=== PATIENT | female | born 1965 | race Hispanic/Latino ===

== ENCOUNTER → 2017-08-19 | Outpatient (CLI) | payer BC | LOC: MAMMO 14:10 | PROVIDERS: ATTEND Obstetrics & Gynecology | DX: Z12.31 Encounter for screening mammogram for malignant neoplasm of breast (principal) | CPT/HCPCS: 77067 ==

== ENCOUNTER → 2018-09-26 | Outpatient (CLI) | payer BC ==
--- NOTE | 2018-09-28 15:15 | Diagnostic Imaging Report ---
Exam: Bone mineral density study. History: Osteopenia. Comparison: None Discussion: Evaluation of the left hip, and lumbar spine was performed utilizing DEXA Hologic bone densitometer. The study is technically adequate. Left hip total bone mineral density: 0.973gm/cm2, T-score is 0.1, Z-score is 0.9. Left hip femoral neck bone mineral density: 0.892gm/cm2, T-score is 0.2, Z-score is 1.2. Lumbar spine total bone mineral density:0.917gm/cm2, T-score is-1.2, Z-score is -0.1. Impression: 1. Normal bone mineral density of the left hip, fracture risk is not increased. 2. Osteopenia of the lumbar spine, fracture risk is increased Least significant change (LSC) for bone mineral density as provided by pit hand is 0.023 g/cm2 for lumbar spine and 0.027 g/cm2 for total hip. 10 -year fracture risk per WHO Fracture Risk Assessment Tool (FRAX) for: Major osteoporotic fracture is 4.8% Hip fracture is 0.1% The above fracture probability is calculated for an untreated patient. Fracture probably may be lower if the patient has received treatment. All treatment decisions require clinical judgment and consideration of individual patient factors, including patient preferences, comorbidities, previous drug use and risk factors not captured in the FRAX model (e.g. frailty, falls, vitamin D deficiency, increased bone turnover, interval significant decline in BMD). The patient's fracture risk is compared to an age-matched control. Medical evaluation for secondary causes of low bone bone mineral density may be appropriate. Correlate clinically for the necessity and timing of the next bone mineral density study. Signed by: Dr. Yadiel Blanchard M.D. on 09/28/2018 3:12 PM
--- NOTE | 2018-09-30 08:33 | Diagnostic Imaging Report ---
#[id number] - MGSCRBIL #BILATERAL DIGITAL SCREENING MAMMOGRAM WITH CAD: 09/26/2018 CLINICAL: Routine screening. Comparison is made to exams dated: 08/19/2017 mammogram and 08/06/2016 mammogram - [facility]. Current study contains 5 films. There are scattered fibroglandular elements in both breasts. Current study was also evaluated with a Computer Aided Detection (CAD) system. Benign appearing calcifications are noted bilaterally. No significant masses, calcifications, or other findings are seen in either breast. IMPRESSION: BENIGN There is no mammographic evidence of malignancy. A 1 year screening mammogram is recommended. The patient will be notified by letter of the results. TIKA MARRERO M.D. ct/penrad:09/29/2018 15:38:45 Ophthalmic Technologist: Dee JIMENEZ(Bertrand)(Cady), [facility] letter sent: Normal Exam Mammogram BI-RADS: 2 Benign
== END ==
LOC: MAMMO 13:36
PROVIDERS: ATTEND Obstetrics & Gynecology
DX: Z12.31 Encounter for screening mammogram for malignant neoplasm of breast (principal); Z78.0 Asymptomatic menopausal state
CPT/HCPCS: 77067; 77080

== ENCOUNTER → 2019-04-18 | Outpatient (CLI) | payer BC ==
--- NOTE | 2019-04-18 15:54 | Diagnostic Imaging Report ---
Cervical spine, 5 views Clinical indications: Cervical pain Comparison: None Findings: AP, lateral, bilateral obliques, and open mouth odontoid views of the cervical spine were obtained. Alignment is anatomic. There is mild disc space narrowing at C5-C6. Neural foramina are grossly patent bilaterally. Impression: Discogenic degenerative changes of the lower cervical spine. Signed by: Alf Colvin MD on 04/18/2019 3:51 PM
== END ==
LOC: RAD 15:02
PROVIDERS: ATTEND Internal Medicine
DX: M47.812 Spondylosis without myelopathy or radiculopathy, cervical region (principal)
CPT/HCPCS: 72050

== ENCOUNTER → 2019-10-13 | Outpatient (CLI) | payer BC | LOC: MAMMO 14:51 | PROVIDERS: ATTEND Internal Medicine | DX: Z12.31 Encounter for screening mammogram for malignant neoplasm of breast (principal) | CPT/HCPCS: 77067 ==

== ENCOUNTER → 2020-06-17 | Outpatient (CLI) | payer BC | LOC: DX 14:05 | PROVIDERS: ATTEND Obstetrics & Gynecology | DX: Z13.820 Encounter for screening for osteoporosis (principal) | CPT/HCPCS: 77080 ==

== ENCOUNTER → 2021-07-30 | Outpatient (CLI) | payer BC | LOC: MAMMO 13:28 | PROVIDERS: ATTEND Internal Medicine | DX: Z12.31 Encounter for screening mammogram for malignant neoplasm of breast (principal) | CPT/HCPCS: 77067 ==

== ENCOUNTER → 2022-08-07 | Outpatient (CLI) | payer BC | LOC: MAMMO 13:48 | PROVIDERS: ATTEND Obstetrics & Gynecology | DX: Z12.31 Encounter for screening mammogram for malignant neoplasm of breast (principal) | CPT/HCPCS: 77067 ==